=== PATIENT | male | born 1960 | race Caucasian/White ===

== ENCOUNTER 2018-04-24 08:39 | Inpatient (IN) ==
[2018-04-24] MEDS ORDERED: THIAMINE 200 MG/2 ML VIAL IV STA (08:59)
[2018-04-24] MEDS ORDERED: THIAMINE INJ 100 MG, FOLIC ACID INJ 1 MG, MAGNESIUM SULF INJ 2 GM, MULTIVITAMIN INJ 10 ... IV ONE (08:59)
[2018-04-24 09:58] LABS: Basophils % 0.4 % (0.0-0.8); Eosinophils % 0.8 % (0.00-10.9); Hematocrit 35.9 VOL% (42.0-52.0); Immature Granulocytes % 0.4 %; Immature Granulocytes Absolute 0.02 #; Lymphocytes # 1.1 10*3/uL (1.4-4.0); Lymphocytes % 20.5 % (21.2-54.2); Mean Corpuscular HGB Conc 36.2 GM/DL (32-36); Mean Corpuscular Hemoglobin 37 PG (27-34); Monocytes # 0.4 10*3/uL (0.11-0.8); Monocytes % 7.1 % (1.7-12.7); Neutrophils # 3.7 10*3/uL (1.4-7.4); Neutrophils % 70.8 % (38.7-73.9); Red Blood Count 3.52 MC/CUMM (3.8-5.5); White Blood Count 5.2 T/CUMM (4-12)
[2018-04-24 10:04] LABS: Platelet Count 56 T/CUMM (130-400)
[2018-04-24 10:07] LABS: INR 1.5; PT Patient Result 15.8 SECS
[2018-04-24 10:11] LABS: Alanine Aminotransferase 45 U/L (16-61); Albumin 3.3 G/DL (3.4-5.0); Alkaline Phosphatase 194 U/L (45-117); Aspartate Amino Transferase 106 U/L (0-37); Blood Urea Nitrogen 10 MG/DL (7-18); Calcium 8.5 MG/DL (8.5-10.1); Glucose 134 MG/DL (74-106); Osmolality,Calculated 270.1 MOS/KG (273-304); Potassium 2.9 MMOL/L (3.5-5.1); Sodium 135 MMOL/L (136-145); Total Protein 6.5 G/DL (6.4-8.3)
[2018-04-24 10:17] LABS: Ammonia 45 UMOL/L (11-32)
[2018-04-24 10:48] LABS: Apearance,Urine CLEAR (Clear); Blood, Urine Negative (Negative); Glucose,Urine (UA) 50 mg/dL (Negative); Ketones,Urine Negative (Negative); Mucus,Urine Many /LPF (Occasional); Nitrite,Urine Negative (Negative); Protein,Urine 100 MG/DL; Renal Epithelial Cells,Urine Few /HPF (<1); Squamous Epithelial Cell,Urine Occasional /HPF (0-10); Urine Color Amber (Yellow); WBC,Urine 3 /HPF (0-6)
[2018-04-24 10:54] LABS: Bilirubin,Urine Moderate mg/dL (Negative)
[2018-04-24 11:41] LABS: Hypochromasia 1+; Macrocytosis 1+; Platelet Estimate Decreased
[2018-04-24] MEDS ORDERED: ONDANSETRON 4 MG/2 ML VIAL IV PRN (14:06)
[2018-04-24] MEDS ORDERED: ACETAMINOPHEN 325 MG TABLET PO PRN (14:06)
[2018-04-24] MEDS ORDERED: cloNIDine 0.1 MG TABLET PO PRN (14:09)
[2018-04-24] MEDS ORDERED: NICOTINE 14 MG/24 HR PATCH TRANSDERM SCH (14:30)
[2018-04-24] MEDS ORDERED: HALOPERIDOL 5 MG/ML AMP IV PRN (16:11)
[2018-04-24] MEDS: GABAPENTIN 300 MG CAPSULE PO SCH ×2 (18:01→20:51)
[2018-04-24] MEDS: POTASSIUM CHLORIDE 20 MEQ TABLET PO PRN ×3 (18:05→23:13)
[2018-04-24] MEDS ORDERED: rOPINIRole 1 MG TABLET PO SCH (21:00)
[2018-04-25] MEDS: POTASSIUM CHLORIDE 20 MEQ TABLET PO PRN (01:18)
[2018-04-25 06:55] LABS: Basophils % 0.4 % (0.0-0.8); Eosinophils # 0.1 10*3/uL (0.0-0.87); Eosinophils % 1.8 % (0.00-10.9); Hematocrit 34.3 VOL% (42.0-52.0); Immature Granulocytes % 0.6 %; Immature Granulocytes Absolute 0.03 #; Lymphocytes # 1.3 10*3/uL (1.4-4.0); Lymphocytes % 26.6 % (21.2-54.2); Mean Corpuscular Hemoglobin 36 PG (27-34); Mean Corpuscular Volume 103.9 FL (87-102); Mean Platelet Volume 11.3 FL (9.6-12.0); Monocytes # 0.4 10*3/uL (0.11-0.8); Monocytes % 7.4 % (1.7-12.7); Neutrophils # 3.1 10*3/uL (1.4-7.4); Neutrophils % 63.2 % (38.7-73.9); Red Cell Distribution Width 14.2 % (9.3-17.3); White Blood Count 4.9 T/CUMM (4-12)
[2018-04-25 06:56] LABS: Platelet Count 45 T/CUMM (130-400)
[2018-04-25 07:13] LABS: Calcium 8.1 MG/DL (8.5-10.1); Osmolality,Calculated 272.8 MOS/KG (273-304); Potassium 3.1 MMOL/L (3.5-5.1)
[2018-04-25 07:27] LABS: Hypochromasia 1+; Macrocytosis Slight; Platelet Estimate Decreased
[2018-04-25] MEDS ORDERED: LACTULOSE 20 GM/30 ML UDCUP PO PRN (08:17)
[2018-04-25] MEDS ORDERED: DICYCLOMINE 10 MG CAPSULE PO PRN (08:40)
[2018-04-25] MEDS: GABAPENTIN 300 MG CAPSULE PO SCH (08:48)
[2018-04-25] MEDS ORDERED: THIAMINE 100 MG TABLET PO SCH (09:00)
[2018-04-25] MEDS ORDERED: PANTOPRAZOLE 40 MG TABLET PO SCH (09:00)
[2018-04-25] MEDS ORDERED: FOLIC ACID 1 MG TABLET PO SCH (09:00)
[2018-04-25] MEDS ORDERED: MULTIVITAMIN (CENTRUM) TABLET PO SCH (09:00)
[2018-04-25] MEDS ORDERED: chlordiazePOXIDE 25 MG CAPSULE PO SCH (09:00)
[2018-04-25 14:30] VITALS: BP 122/71
== END 2018-04-25 15:20 | disposition home or self-care (01) | DRG 897 ==
LOC: N.ED 08:39 → N.EDINP 14:06 → N.5E 15:38
PROVIDERS: ADMIT Internal Medicine; ATTEND Internal Medicine

== ENCOUNTER 2019-04-17 14:39 | Inpatient (IN) ==
[2019-04-17] MEDS ORDERED: ONDANSETRON 4 MG/2 ML VIAL IV ONE (15:37)
[2019-04-17 15:57] LABS: Basophils % 0.4 % (0.0-0.8); Eosinophils % 0.4 % (0.00-10.9); Hematocrit 45.9 VOL% (42.0-52.0); Hemoglobin 15.3 GM/DL (14.0-18.0); Immature Granulocytes % 0.3 %; Immature Granulocytes Absolute 0.03 #; Lymphocytes # 1.3 10*3/uL (1.4-4.0); Lymphocytes % 14.5 % (21.2-54.2); Mean Corpuscular HGB Conc 33.3 GM/DL (32-36); Mean Corpuscular Volume 94.8 FL (87-102); Mean Platelet Volume 12.4 FL (9.6-12.0); Monocytes % 6.6 % (1.7-12.7); Neutrophils % 77.8 % (38.7-73.9); Platelet Count 117 T/CUMM (130-400); Red Blood Count 4.84 MC/CUMM (3.8-5.5); Red Cell Distribution Width 12.1 % (9.3-17.3); White Blood Count 9.2 T/CUMM (4-12)
[2019-04-17 16:01] LABS: Apearance,Urine CLEAR (Clear); Bilirubin,Urine Negative (Negative); Blood, Urine Negative (Negative); Glucose,Urine (UA) >=500 mg/dL (Negative); Ketones,Urine 5 mg/dL (Negative); Nitrite,Urine Negative (Negative); Protein,Urine Negative; RBC,Urine 1 /HPF (0-4); Urine Color Colorless (Yellow); Urine Specific Gravity 1.025 (1.001-1.035); Urine Urobilinogen < 2.0 EU/DL (0.2-1.0); WBC,Urine <1 /HPF (0-6)
[2019-04-17 16:21] LABS: Albumin 4.2 G/DL (3.4-5.0); Bilirubin,Total 1.1 MG/DL (0.2-1.0); Calcium 10.2 MG/DL (8.5-10.1); Osmolality,Calculated 324.2 MOS/KG (273-304); Total Protein 7.8 G/DL (6.4-8.3)
[2019-04-17] MEDS ORDERED: SODIUM CHLORIDE 0.9% 2,000 ML IV STA (16:31)
[2019-04-17] MEDS ORDERED: MAGNESIUM SULF RIDER 2 GM in PREMIX 1 EACH IV PRN (16:50)
[2019-04-17] MEDS ORDERED: SODIUM CHLORIDE 0.9% 1,000 ML IV ONE (16:50)
[2019-04-17] MEDS ORDERED: INSULIN REGULAR 100 UNIT/ML IV ONE (16:50)
[2019-04-17] MEDS ORDERED: GLUCAGON 1 MG VIAL IM PRN (16:50)
[2019-04-17] MEDS ORDERED: DEXTROSE 10% 250 ML BAG IV PRN ×2 (16:50)
[2019-04-17] MEDS ORDERED: SODIUM PHOSPHATE INJ 19.3 MMOL in SODIUM CHLORIDE 0.9% 250 ML IV PRN (16:50)
[2019-04-17] MEDS ORDERED: SODIUM BICARB INJ 100 MEQ in STERILE WATER INJ 400 ML IV PRN (16:50)
[2019-04-17] MEDS ORDERED: MAGNESIUM SULF RIDER 4 GM in PREMIX 1 EACH IV PRN (16:50)
[2019-04-17] MEDS ORDERED: INSULIN REGULAR DRIP 100 ML IV SCH (17:00)
[2019-04-17] MEDS ORDERED: ONDANSETRON 4 MG/2 ML VIAL IV STA (17:05)
[2019-04-17] MEDS ORDERED: ONDANSETRON 4 MG/2 ML VIAL IV PRN (17:25)
[2019-04-17 17:34] LABS: INR 1.1; PT Patient Result 11.5 SECS; Partial Thromboplastin Time 25.1 SECS (0-40)
[2019-04-17 17:53] LABS: ABG Base Excess 3.6 MMOL/L (-2.5-2.5); ABG HCO3 27.4 MMOL/L (20-26); ABG Oxygen Saturation 90.7 % (95-100); ABG PCO2 49.1 MM HG (35-48); ABG PH 7.389 (7.35-7.45); ABG PO2 60.2 MM HG (80-95); ABG TCO2 25.4 MMOL/L (23-27); Allen Test Positive; Pt O2 Delivery Device Room Air
[2019-04-17 18:35] LABS: Apearance,Urine CLEAR (Clear); Bilirubin,Urine Negative (Negative); Blood, Urine Negative (Negative); Glucose,Urine (UA) >=500 mg/dL (Negative); Ketones,Urine 5 mg/dL (Negative); Mucus,Urine Occasional /LPF (Occasional); Nitrite,Urine Negative (Negative); Protein,Urine Negative; RBC,Urine 3 /HPF (0-4); Urine Color Colorless (Yellow); Urine Specific Gravity 1.032 (1.001-1.035); Urine Urobilinogen < 2.0 EU/DL (0.2-1.0); WBC,Urine <1 /HPF (0-6)
[2019-04-17] MEDS: SODIUM CHLORIDE 0.9% 1,000 ML IV SCH ×3 (18:35→22:37)
[2019-04-17 19:17] LABS: Calcium 9.3 MG/DL (8.5-10.1)
[2019-04-17] MEDS: FAMOTIDINE 20 MG/2 ML VIAL IV SCH (19:26)
[2019-04-17 19:46] LABS: Barbiturates Screen,Urine Negative (Negative); Benzodiazepines Screen,Urine Negative (Negative); Cannabinoid Screen,Urine Negative (Negative); Opiate Screen,Urine Negative (Negative); Phencyclidine Screen,Urine Negative (Negative)
[2019-04-17] MEDS: GABAPENTIN 300 MG CAPSULE PO SCH ×2 (20:11→20:17)
[2019-04-17] MEDS ORDERED: ENOXAPARIN 30 MG/0.3 ML SYRINGE SUBCUT SCH (21:00)
[2019-04-17 21:34] LABS: Calcium 8.8 MG/DL (8.5-10.1); Osmolality,Calculated 304.3 MOS/KG (273-304)
[2019-04-17] MEDS: POTASSIUM CHLORIDE RIDER 10 MEQ in PREMIX 1 EACH IV PRN ×3 (21:43→23:44)
[2019-04-17] MEDS ORDERED: SODIUM CHLORIDE 0.9% 1,000 ML IV SCH (21:50)
[2019-04-18 02:07] LABS: Calcium 8.2 MG/DL (8.5-10.1); Osmolality,Calculated 303.7 MOS/KG (273-304)
[2019-04-18] MEDS ORDERED: INSULIN REGULAR 100 UNIT/ML IV ONE ×2 (03:27→05:34)
[2019-04-18] MEDS: FAMOTIDINE 20 MG/2 ML VIAL IV SCH (05:03)
[2019-04-18 05:06] LABS: Basophils # 0.1 10*3/uL (0.0-0.2); Basophils % 0.5 % (0.0-0.8); Eosinophils # 0.2 10*3/uL (0.0-0.87); Eosinophils % 2.3 % (0.00-10.9); Hematocrit 35.7 VOL% (42.0-52.0); Hemoglobin 12.3 GM/DL (14.0-18.0); Immature Granulocytes % 0.5 %; Immature Granulocytes Absolute 0.05 #; Lymphocytes # 2.9 10*3/uL (1.4-4.0); Lymphocytes % 26.9 % (21.2-54.2); Mean Corpuscular HGB Conc 34.5 GM/DL (32-36); Mean Corpuscular Volume 92.2 FL (87-102); Mean Platelet Volume 11.4 FL (9.6-12.0); Monocytes % 7.4 % (1.7-12.7); Neutrophils % 62.4 % (38.7-73.9); Platelet Count 97 T/CUMM (130-400); Red Blood Count 3.87 MC/CUMM (3.8-5.5); Red Cell Distribution Width 11.7 % (9.3-17.3); White Blood Count 10.6 T/CUMM (4-12)
[2019-04-18 05:27] LABS: Calcium 8.2 MG/DL (8.5-10.1); Osmolality,Calculated 302.6 MOS/KG (273-304)
[2019-04-18] MEDS: POTASSIUM CHLORIDE RIDER 10 MEQ in PREMIX 1 EACH IV PRN ×2 (05:37→06:42)
[2019-04-18 05:38] LABS: Platelet Estimate Decreased
[2019-04-18] MEDS ORDERED: SODIUM CHLOR 0.45% KCL 20 MEQ 20 MEQ/1,000 ML BAG IV SCH (06:00)
[2019-04-18] MEDS: rOPINIRole 1 MG TABLET PO SCH (08:41)
[2019-04-18] MEDS: GABAPENTIN 300 MG CAPSULE PO SCH ×3 (08:41→21:19)
[2019-04-18] MEDS: PANTOPRAZOLE 40 MG TABLET PO SCH (08:41)
[2019-04-18] MEDS: SODIUM CHLORIDE 0.45% 1,000 ML IV SCH ×2 (08:44→17:25)
[2019-04-18] MEDS ORDERED: INSULIN GLARGINE 100 UNIT/ML SUBCUT SCH ×2 (09:00→12:27)
[2019-04-18] MEDS ORDERED: SODIUM CHLORIDE 0.45% 1,000 ML IV SCH (09:50)
[2019-04-18 09:51] LABS: Calcium 8.1 MG/DL (8.5-10.1)
[2019-04-18] MEDS ORDERED: LORazepam 1 MG TABLET PO PRN (11:06)
[2019-04-18] MEDS: THIAMINE 100 MG TABLET PO SCH (11:29)
[2019-04-18] MEDS: INSULIN LISPRO 100 UNIT/ML SUBCUT SCH ×5 (11:29→21:22)
[2019-04-18] MEDS: MULTIVITAMIN (CENTRUM) TABLET PO SCH (11:29)
[2019-04-18] MEDS: FOLIC ACID 1 MG TABLET PO SCH (11:29)
[2019-04-18] MEDS ORDERED: ENOXAPARIN 40 MG/0.4 ML SYRINGE SUBCUT SCH (21:00)
[2019-04-19 04:56] LABS: Basophils # 0.1 10*3/uL (0.0-0.2); Basophils % 0.6 % (0.0-0.8); Eosinophils # 0.3 10*3/uL (0.0-0.87); Eosinophils % 3.3 % (0.00-10.9); Hemoglobin 12.6 GM/DL (14.0-18.0); Immature Granulocytes % 0.5 %; Immature Granulocytes Absolute 0.05 #; Lymphocytes # 2.9 10*3/uL (1.4-4.0); Lymphocytes % 30.3 % (21.2-54.2); Mean Corpuscular Volume 91.6 FL (87-102); Mean Platelet Volume 11.8 FL (9.6-12.0); Monocytes % 5.3 % (1.7-12.7); Platelet Count 92 T/CUMM (130-400); Red Blood Count 3.93 MC/CUMM (3.8-5.5); Red Cell Distribution Width 11.6 % (9.3-17.3); White Blood Count 9.6 T/CUMM (4-12)
[2019-04-19 05:17] LABS: Eosinophils 3 % (0-10); Lymphocytes 32 % (20-55); Segmented Neutrophils 59 % (50-85); Total Cells Counted 100
[2019-04-19 05:18] LABS: Hypochromasia 1+; Platelet Estimate Decreased
[2019-04-19 05:19] LABS: Calcium 8.2 MG/DL (8.5-10.1); Osmolality,Calculated 288.4 MOS/KG (273-304)
[2019-04-19] MEDS: SODIUM CHLORIDE 0.45% 1,000 ML IV SCH (05:48)
[2019-04-19 08:41] LABS: Albumin 2.6 G/DL (3.4-5.0); Bilirubin,Direct 0.2 MG/DL (0.0-0.20); Bilirubin,Indirect 0.2 MG/DL (0.0-1.0); Bilirubin,Total 0.4 MG/DL (0.2-1.0)
[2019-04-19] MEDS: MULTIVITAMIN (CENTRUM) TABLET PO SCH (09:18)
[2019-04-19] MEDS: FOLIC ACID 1 MG TABLET PO SCH (09:18)
[2019-04-19] MEDS: GABAPENTIN 300 MG CAPSULE PO SCH ×2 (09:18→15:24)
[2019-04-19] MEDS: THIAMINE 100 MG TABLET PO SCH (09:19)
[2019-04-19] MEDS: PANTOPRAZOLE 40 MG TABLET PO SCH (09:19)
[2019-04-19] MEDS: rOPINIRole 1 MG TABLET PO SCH (09:19)
[2019-04-19] MEDS: INSULIN LISPRO 100 UNIT/ML SUBCUT SCH ×4 (09:34→12:39)
[2019-04-19 12:21] VITALS: BP 118/74
== END 2019-04-19 16:25 | disposition home or self-care (01) | DRG 638 ==
LOC: N.ED 14:39 → SUATTDRO 16:50 → N.EDINP 16:50 → N.CC 17:26 → N.3E 04-18 14:36
PROVIDERS: ADMIT Internal Medicine; ATTEND Internal Medicine

== ENCOUNTER 2022-02-07 14:14 | Inpatient (IN) ==
[2022-02-07] MEDS ORDERED: SODIUM CHLORIDE 0.9% 1,000 ML IV STA (14:56)
[2022-02-07] MEDS ORDERED: ONDANSETRON 4 MG/2 ML VIAL IV STA (14:56)
[2022-02-07 15:30] LABS: Albumin 3.3 G/DL (3.4-5.0); Bilirubin,Total 1.9 MG/DL (0.20-1.00); Calcium 9.1 MG/DL (8.5-10.1); Potassium 3.7 MMOL/L (3.5-5.1); Total Protein 6.9 G/DL (6.4-8.2)
[2022-02-07 15:34] LABS: Basophils % 0.3 % (0.0-0.8); Eosinophils # 0.1 10*3/uL (0.0-0.87); Eosinophils % 0.6 % (0.00-10.9); Hemoglobin 13.7 GM/DL (14.0-18.0); Immature Granulocytes % 0.5 %; Immature Granulocytes Absolute 0.04 #; Lymphocytes # 1.5 10*3/uL (1.4-4.0); Lymphocytes % 16.5 % (21.2-54.2); Mean Corpuscular HGB Conc 34.3 GM/DL (32-36); Mean Corpuscular Volume 87.7 FL (87-102); Mean Platelet Volume 10.8 FL (9.6-12.0); Monocytes # 0.7 10*3/uL (0.11-0.8); Monocytes % 7.3 % (1.7-12.7); Neutrophils % 74.8 % (38.7-73.9); Platelet Count 108 T/CUMM (130-400); Red Blood Count 4.56 MC/CUMM (3.8-5.5); Red Cell Distribution Width 12.7 % (9.3-17.3); White Blood Count 8.9 T/CUMM (4-12)
[2022-02-07 15:42] LABS: Glucose,Urine (UA) Negative (Negative); Protein,Urine Negative (Negative); Urine Appearance Clear (Clear); Urine Color Yellow (Yellow); Urine Specific Gravity 1.015 (1.001-1.035)
[2022-02-07 15:43] LABS: Bilirubin,Urine Negative (Negative); Blood, Urine Negative (Negative); Ketones,Urine 15 mg/dL (Negative); Nitrite,Urine Negative (Negative); Urine Urobilinogen >= 8.0 eU/dL (<2.0)
[2022-02-07 15:45] LABS: RBC,Urine <1 /HPF (0-4); Squamous Epithelial Cell,Urine Occasional /HPF (0-10)
[2022-02-07] MEDS: DEXTROSE 5% NACL 0.45% 1,000 ML IV SCH (19:25)
[2022-02-07] MEDS: MORPHINE 2 MG/1 ML SYRINGE IV PRN ×2 (19:42→23:33)
[2022-02-07] MEDS: ONDANSETRON 4 MG/2 ML VIAL IV PRN (19:43)
[2022-02-08] MEDS: ONDANSETRON 4 MG/2 ML VIAL IV PRN (00:20)
[2022-02-08] MEDS ORDERED: PROMETHAZINE 25 MG/1 ML VIAL IM PRN (01:00)
[2022-02-08] MEDS ORDERED: HYDROmorphone 1 MG/1 ML SYRINGE IV ONE (01:48)
[2022-02-08] MEDS: HYDROmorphone 1 MG/1 ML SYRINGE IV PRN ×6 (04:04→21:59)
[2022-02-08] MEDS: DEXTROSE 5% NACL 0.45% 1,000 ML IV SCH ×2 (04:05→06:24)
[2022-02-08 04:52] LABS: Basophils % 0.2 % (0.0-0.8); Hematocrit 36.1 VOL% (42.0-52.0); Hemoglobin 12.3 GM/DL (14.0-18.0); Immature Granulocytes % 0.4 %; Immature Granulocytes Absolute 0.05 #; Lymphocytes # 0.4 10*3/uL (1.4-4.0); Lymphocytes % 3.2 % (21.2-54.2); Mean Corpuscular HGB Conc 34.1 GM/DL (32-36); Mean Corpuscular Volume 87.4 FL (87-102); Mean Platelet Volume 10.5 FL (9.6-12.0); Monocytes # 1.1 10*3/uL (0.11-0.8); Monocytes % 8.3 % (1.7-12.7); Neutrophils % 87.9 % (38.7-73.9); Platelet Count 98 T/CUMM (130-400); Red Blood Count 4.13 MC/CUMM (3.8-5.5); Red Cell Distribution Width 12.6 % (9.3-17.3); White Blood Count 13.3 T/CUMM (4-12)
[2022-02-08 05:13] LABS: Band Neutrophils 12 % (0-10); Lymphocytes 6 % (20-55); Microcytosis 1+; Total Cells Counted 100
[2022-02-08 05:14] LABS: Ovalocytes Slight; Platelet Estimate Decreased
[2022-02-08 05:18] LABS: Albumin 3.1 G/DL (3.4-5.0); Bilirubin,Total 2.1 MG/DL (0.20-1.00); Calcium 8.4 MG/DL (8.5-10.1); Osmolality,Calculated 273.2 MOS/KG (273-304); Potassium 3.4 MMOL/L (3.5-5.1); Total Protein 6.1 G/DL (6.4-8.2)
[2022-02-08] MEDS: PANTOPRAZOLE 40 MG VIAL IV SCH (06:16)
[2022-02-08] MEDS ORDERED: DEXTROSE 10% 250 ML BAG IV PRN (09:29)
[2022-02-08] MEDS ORDERED: GLUCAGON 1 MG VIAL IM PRN (09:29)
[2022-02-08] MEDS ORDERED: MAGNESIUM SULF RIDER 2 GM/50 ML PREMIX IV ONE (10:00)
[2022-02-08] MEDS: SODIUM CHLOR 0.9% KCL 20 MEQ 20 MEQ/1,000 ML BAG IV SCH ×2 (10:22→17:15)
[2022-02-08] MEDS: INSULIN LISPRO 100 UNIT/ML SUBCUT SCH ×3 (13:34→21:00)
[2022-02-08 14:07] LABS: INR 1.2; PT Patient Result 12.6 SECS (10.5-12.0)
[2022-02-09] MEDS: HYDROmorphone 1 MG/1 ML SYRINGE IV PRN ×7 (02:24→23:33)
[2022-02-09] MEDS: PANTOPRAZOLE 40 MG VIAL IV SCH (05:43)
[2022-02-09] MEDS: SODIUM CHLOR 0.9% KCL 20 MEQ 20 MEQ/1,000 ML BAG IV SCH ×3 (05:44→22:36)
[2022-02-09] MEDS: INSULIN LISPRO 100 UNIT/ML SUBCUT SCH ×4 (09:11→22:39)
[2022-02-10] MEDS: HYDROmorphone 1 MG/1 ML SYRINGE IV PRN ×9 (02:08→23:03)
[2022-02-10] MEDS: SODIUM CHLOR 0.9% KCL 20 MEQ 20 MEQ/1,000 ML BAG IV SCH ×3 (07:11→18:35)
[2022-02-10] MEDS: PANTOPRAZOLE 40 MG VIAL IV SCH (07:14)
[2022-02-10] MEDS: INSULIN LISPRO 100 UNIT/ML SUBCUT SCH ×4 (11:52→20:42)
[2022-02-11] MEDS: HYDROmorphone 1 MG/1 ML SYRINGE IV PRN ×9 (01:45→22:54)
[2022-02-11] MEDS: SODIUM CHLOR 0.9% KCL 20 MEQ 20 MEQ/1,000 ML BAG IV SCH ×4 (03:41→20:44)
[2022-02-11] MEDS: PANTOPRAZOLE 40 MG VIAL IV SCH ×2 (05:45→10:46)
[2022-02-11] MEDS: INSULIN LISPRO 100 UNIT/ML SUBCUT SCH ×4 (11:14→20:49)
[2022-02-12] MEDS: HYDROmorphone 1 MG/1 ML SYRINGE IV PRN ×9 (00:56→23:59)
[2022-02-12] MEDS: SODIUM CHLOR 0.9% KCL 20 MEQ 20 MEQ/1,000 ML BAG IV SCH ×3 (05:38→21:08)
[2022-02-12] MEDS: PANTOPRAZOLE 40 MG VIAL IV SCH (07:28)
[2022-02-12] MEDS: INSULIN LISPRO 100 UNIT/ML SUBCUT SCH ×4 (07:48→21:12)
[2022-02-12 08:16] LABS: Basophils % 0.3 % (0.0-0.8); Eosinophils # 0.1 10*3/uL (0.0-0.87); Eosinophils % 0.6 % (0.00-10.9); Hematocrit 35.8 VOL% (42.0-52.0); Hemoglobin 12.4 GM/DL (14.0-18.0); Immature Granulocytes % 0.5 %; Immature Granulocytes Absolute 0.04 #; Lymphocytes # 0.8 10*3/uL (1.4-4.0); Lymphocytes % 8.8 % (21.2-54.2); Mean Corpuscular HGB Conc 34.6 GM/DL (32-36); Mean Corpuscular Volume 86.9 FL (87-102); Mean Platelet Volume 9.4 FL (9.6-12.0); Monocytes # 0.8 10*3/uL (0.11-0.8); Monocytes % 9.2 % (1.7-12.7); Neutrophils % 80.6 % (38.7-73.9); Platelet Count 145 T/CUMM (130-400); Red Blood Count 4.12 MC/CUMM (3.8-5.5); Red Cell Distribution Width 12.9 % (9.3-17.3); White Blood Count 8.7 T/CUMM (4-12)
[2022-02-12 08:23] LABS: INR 1.2; PT Patient Result 13.5 SECS (10.5-12.0)
[2022-02-12 08:42] LABS: Albumin 2.3 G/DL (3.4-5.0); Bilirubin,Total 1.3 MG/DL (0.20-1.00); Calcium 9.1 MG/DL (8.5-10.1); Osmolality,Calculated 272.8 MOS/KG (273-304); Potassium 4.1 MMOL/L (3.5-5.1); Total Protein 6.3 G/DL (6.4-8.2)
[2022-02-12] MEDS ORDERED: DIAZEPAM 5 MG TABLET PO ONE (09:40)
[2022-02-12] MEDS ORDERED: MIDAZOLAM 2 MG/2 ML VIAL IV ONE (09:40)
[2022-02-12] MEDS ORDERED: fentaNYL 100 MCG/2 ML VIAL IV ONE (09:40)
[2022-02-13] MEDS: HYDROmorphone 1 MG/1 ML SYRINGE IV PRN ×5 (02:17→16:09)
[2022-02-13] MEDS: SODIUM CHLOR 0.9% KCL 20 MEQ 20 MEQ/1,000 ML BAG IV SCH ×2 (04:50→16:08)
[2022-02-13] MEDS: PANTOPRAZOLE 40 MG VIAL IV SCH (05:36)
[2022-02-13] MEDS: INSULIN LISPRO 100 UNIT/ML SUBCUT SCH ×3 (07:40→16:14)
[2022-02-13] MEDS ORDERED: oxyCODONE/ACETAMINOPHEN 5-325 MG TABLET PO PRN (09:09)
[2022-02-13 17:00] VITALS: BP 149/87
== END 2022-02-13 19:18 | disposition home health service (06) | DRG 446 ==
LOC: EDBD → EDUNIT# → N.ED 14:14 → N.EDINP 14:14 → N.3E 18:52
PROVIDERS: ADMIT Student in an Organized Health Care Education/Training Program; ATTEND Student in an Organized Health Care Education/Training Program

== ENCOUNTER 2022-02-18 14:09 | Inpatient (IN) ==
[2022-02-18] MEDS ORDERED: methylPREDNISolone SOD SUC 125 MG/2 ML VIAL IV STA (21:03)
[2022-02-18] MEDS ORDERED: SODIUM CHLORIDE 0.9% 500 ML IV STA (21:03)
[2022-02-18] MEDS ORDERED: ONDANSETRON 4 MG/2 ML VIAL IV STA (21:03)
[2022-02-18] MEDS ORDERED: ALBUTEROL/IPRATROPIUM 3 ML NEB RESP TX STA (21:03)
[2022-02-18] MEDS ORDERED: HYDROmorphone 1 MG/1 ML SYRINGE IV STA (21:03)
[2022-02-18 21:47] LABS: Basophils # 0.1 10*3/uL (0.0-0.2); Basophils % 0.5 % (0.0-0.8); Eosinophils # 0.1 10*3/uL (0.0-0.87); Eosinophils % 0.5 % (0.00-10.9); Hemoglobin 14.7 GM/DL (14.0-18.0); Immature Granulocytes % 2.1 %; Immature Granulocytes Absolute 0.27 #; Lymphocytes # 2.2 10*3/uL (1.4-4.0); Lymphocytes % 16.7 % (21.2-54.2); Mean Corpuscular HGB Conc 33.4 GM/DL (32-36); Mean Corpuscular Volume 87.5 FL (87-102); Monocytes # 0.8 10*3/uL (0.11-0.8); Monocytes % 6.3 % (1.7-12.7); Neutrophils % 73.9 % (38.7-73.9); Platelet Count 317 T/CUMM (130-400); Red Blood Count 5.03 MC/CUMM (3.8-5.5); Red Cell Distribution Width 12.7 % (9.3-17.3); White Blood Count 12.9 T/CUMM (4-12)
[2022-02-18 21:57] LABS: INR 1.3
[2022-02-18 22:04] LABS: Ammonia < 10 UMOL/L (11-32)
[2022-02-18 22:08] LABS: Lactic Acid 1.4 MMOL/L (0.4-2.0)
[2022-02-18 22:23] LABS: Alanine Aminotransferase 23 U/L (16-61); Alkaline Phosphatase 197 U/L (45-117); Amylase 29 U/L (25-115); Aspartate Amino Transferase 14 U/L (0-37); Blood Urea Nitrogen 26 MG/DL (7-18); Calcium 10.2 MG/DL (8.5-10.1); Carbon Dioxide 30 MMOL/L (21-32); Chloride 93 MMOL/L (98-107); Glucose 142 MG/DL (74-106); Osmolality,Calculated 270.5 MOS/KG (273-304); Potassium 4.3 MMOL/L (3.5-5.1); Sodium 132 MMOL/L (136-145); Total Protein 8.2 G/DL (6.4-8.2)
[2022-02-18] MEDS ORDERED: NICOTINE 21 MG/24 HR PATCH TRANSDERM PRN (22:51)
[2022-02-18] MEDS ORDERED: DEXTROSE 10% 250 ML BAG IV PRN (22:51)
[2022-02-18] MEDS ORDERED: guaiFENesin/DM ER 600-30 MG TABLET PO PRN (22:51)
[2022-02-18] MEDS ORDERED: hydrALAZINE 20 MG/1 ML VIAL IV PRN (22:51)
[2022-02-18] MEDS ORDERED: MORPHINE 2 MG/1 ML SYRINGE IV PRN (22:51)
[2022-02-18] MEDS ORDERED: GLUCAGON 1 MG VIAL IM PRN (22:51)
[2022-02-18] MEDS: PIPERACILLIN/TAZOBACTAM 3,375 MG in SODIUM CHLORIDE 0.9% 100 ML IV SCH (23:20)
[2022-02-19] MEDS: ALBUTEROL/IPRATROPIUM 3 ML NEB RESP TX SCH ×4 (01:25→19:46)
[2022-02-19] MEDS: VANCOMYCIN INJ 1,250 MG in SODIUM CHLORIDE 0.9% 250 ML IV SCH ×2 (03:20→14:57)
[2022-02-19] MEDS: HYDROmorphone 1 MG/1 ML SYRINGE IV PRN ×5 (03:41→21:28)
[2022-02-19 03:45] LABS: Basophils % 0.4 % (0.0-0.8); Eosinophils % 0.1 % (0.00-10.9); Hematocrit 39.9 VOL% (42.0-52.0); Hemoglobin 13.5 GM/DL (14.0-18.0); Immature Granulocytes % 2.4 %; Immature Granulocytes Absolute 0.27 #; Lymphocytes # 0.8 10*3/uL (1.4-4.0); Lymphocytes % 6.8 % (21.2-54.2); Mean Corpuscular HGB Conc 33.8 GM/DL (32-36); Mean Corpuscular Volume 86.9 FL (87-102); Mean Platelet Volume 9.1 FL (9.6-12.0); Monocytes # 0.1 10*3/uL (0.11-0.8); Monocytes % 0.7 % (1.7-12.7); Neutrophils % 89.6 % (38.7-73.9); Platelet Count 262 T/CUMM (130-400); Red Blood Count 4.59 MC/CUMM (3.8-5.5); Red Cell Distribution Width 12.6 % (9.3-17.3); White Blood Count 11.2 T/CUMM (4-12)
[2022-02-19 03:57] LABS: Albumin 2.8 G/DL (3.4-5.0); Bilirubin,Total 1.2 MG/DL (0.20-1.00); Calcium 9.3 MG/DL (8.5-10.1); Osmolality,Calculated 271.8 MOS/KG (273-304); Potassium 4.2 MMOL/L (3.5-5.1); Total Protein 7.6 G/DL (6.4-8.2)
[2022-02-19] MEDS: PIPERACILLIN/TAZOBACTAM 3,375 MG in SODIUM CHLORIDE 0.9% 100 ML IV SCH ×2 (07:00→17:46)
[2022-02-19 07:26] LABS: Calcium Oxalate Crystals,Urine Occasional /HPF (Few); Hyaline Casts,Urine 16 /LPF (0-3); Mucus,Urine Occasional /LPF (Occasional); RBC,Urine 1 /HPF (0-4); Squamous Epithelial Cell,Urine Occasional /HPF (0-10)
[2022-02-19 07:29] LABS: Bilirubin,Urine Small mg/dL (Negative); Blood, Urine Negative (Negative); Glucose,Urine (UA) Negative (Negative); Ketones,Urine 40 mg/dL (Negative); Nitrite,Urine Negative (Negative); Protein,Urine Negative (Negative); Urine Appearance Clear (Clear); Urine Color Yellow (Yellow); Urine Specific Gravity > 1.030 (1.001-1.035); Urine Urobilinogen 0.2 eU/dL (<2.0)
[2022-02-19] MEDS: INSULIN LISPRO 100 UNIT/ML SUBCUT SCH ×4 (07:46→21:23)
[2022-02-19 08:16] LABS: Barbiturates Screen,Urine Negative (Negative); Benzodiazepines Screen,Urine Negative (Negative); Cannabinoid Screen,Urine Negative (Negative); Opiate Screen,Urine Positive (Negative); Phencyclidine Screen,Urine Negative (Negative)
[2022-02-19] MEDS: PANTOPRAZOLE 40 MG TABLET PO SCH (08:50)
[2022-02-19] MEDS: HEPARIN 5,000 UNIT/1 ML VIAL SUBCUT SCH ×2 (08:51→21:21)
[2022-02-20] MEDS: PIPERACILLIN/TAZOBACTAM 3,375 MG in SODIUM CHLORIDE 0.9% 100 ML IV SCH ×4 (00:40→23:48)
[2022-02-20] MEDS: ALBUTEROL/IPRATROPIUM 3 ML NEB RESP TX SCH ×4 (01:13→19:15)
[2022-02-20] MEDS: HYDROmorphone 1 MG/1 ML SYRINGE IV PRN ×5 (01:41→21:11)
[2022-02-20] MEDS: VANCOMYCIN INJ 1,250 MG in SODIUM CHLORIDE 0.9% 250 ML IV SCH ×2 (04:48→14:44)
[2022-02-20 05:38] LABS: Basophils % 0.3 % (0.0-0.8); Eosinophils % 0.1 % (0.00-10.9); Hematocrit 39.1 VOL% (42.0-52.0); Hemoglobin 13.3 GM/DL (14.0-18.0); Immature Granulocytes % 1.1 %; Immature Granulocytes Absolute 0.18 #; Lymphocytes # 2.6 10*3/uL (1.4-4.0); Lymphocytes % 16.7 % (21.2-54.2); Mean Corpuscular Volume 87.9 FL (87-102); Mean Platelet Volume 9.2 FL (9.6-12.0); Monocytes # 0.8 10*3/uL (0.11-0.8); Monocytes % 5.3 % (1.7-12.7); Neutrophils % 76.5 % (38.7-73.9); Platelet Count 293 T/CUMM (130-400); Red Blood Count 4.45 MC/CUMM (3.8-5.5); Red Cell Distribution Width 12.7 % (9.3-17.3); White Blood Count 15.7 T/CUMM (4-12)
[2022-02-20 06:17] LABS: Albumin 2.9 G/DL (3.4-5.0); Bilirubin,Total 0.6 MG/DL (0.20-1.00); Calcium 9.6 MG/DL (8.5-10.1); Osmolality,Calculated 276.2 MOS/KG (273-304); Potassium 4.8 MMOL/L (3.5-5.1); Total Protein 7.4 G/DL (6.4-8.2)
[2022-02-20] MEDS: PANTOPRAZOLE 40 MG TABLET PO SCH (09:21)
[2022-02-20] MEDS: HEPARIN 5,000 UNIT/1 ML VIAL SUBCUT SCH ×2 (09:22→21:12)
[2022-02-20] MEDS: INSULIN LISPRO 100 UNIT/ML SUBCUT SCH ×4 (09:24→21:12)
[2022-02-20] MEDS: CHOLECALCIFEROL 5,000 UNIT TABLET PO SCH (21:12)
[2022-02-21] MEDS: ALBUTEROL/IPRATROPIUM 3 ML NEB RESP TX SCH ×4 (00:30→19:20)
[2022-02-21] MEDS: HYDROmorphone 1 MG/1 ML SYRINGE IV PRN ×5 (02:20→20:42)
[2022-02-21] MEDS: VANCOMYCIN INJ 1,250 MG in SODIUM CHLORIDE 0.9% 250 ML IV SCH ×2 (03:54→16:22)
[2022-02-21 04:46] LABS: Basophils % 0.4 % (0.0-0.8); Eosinophils # 0.1 10*3/uL (0.0-0.87); Eosinophils % 0.8 % (0.00-10.9); Hematocrit 35.6 VOL% (42.0-52.0); Hemoglobin 11.5 GM/DL (14.0-18.0); Immature Granulocytes Absolute 0.09 #; Lymphocytes # 2.5 10*3/uL (1.4-4.0); Lymphocytes % 27.8 % (21.2-54.2); Mean Corpuscular HGB Conc 32.3 GM/DL (32-36); Mean Corpuscular Volume 89.4 FL (87-102); Mean Platelet Volume 8.9 FL (9.6-12.0); Monocytes # 0.6 10*3/uL (0.11-0.8); Monocytes % 6.5 % (1.7-12.7); Neutrophils % 63.5 % (38.7-73.9); Platelet Count 250 T/CUMM (130-400); Red Blood Count 3.98 MC/CUMM (3.8-5.5); Red Cell Distribution Width 12.7 % (9.3-17.3); White Blood Count 9.1 T/CUMM (4-12)
[2022-02-21 05:05] LABS: Albumin 2.7 G/DL (3.4-5.0); Bilirubin,Total 0.6 MG/DL (0.20-1.00); Calcium 9.2 MG/DL (8.5-10.1); Osmolality,Calculated 277.1 MOS/KG (273-304); Potassium 4.1 MMOL/L (3.5-5.1); Total Protein 6.4 G/DL (6.4-8.2)
[2022-02-21] MEDS: INSULIN LISPRO 100 UNIT/ML SUBCUT SCH ×4 (08:46→23:19)
[2022-02-21] MEDS: PIPERACILLIN/TAZOBACTAM 3,375 MG in SODIUM CHLORIDE 0.9% 100 ML IV SCH ×2 (10:21→16:23)
[2022-02-21] MEDS: CHOLECALCIFEROL 5,000 UNIT TABLET PO SCH ×2 (10:22→20:41)
[2022-02-21] MEDS: PANTOPRAZOLE 40 MG TABLET PO SCH (10:22)
[2022-02-21] MEDS: HEPARIN 5,000 UNIT/1 ML VIAL SUBCUT SCH ×2 (10:22→20:41)
[2022-02-21] MEDS ORDERED: FUROSEMIDE 40 MG/4 ML VIAL IV ONE (12:00)
[2022-02-22] MEDS: ALBUTEROL/IPRATROPIUM 3 ML NEB RESP TX SCH ×4 (00:22→19:33)
[2022-02-22] MEDS: PIPERACILLIN/TAZOBACTAM 3,375 MG in SODIUM CHLORIDE 0.9% 100 ML IV SCH ×3 (00:39→18:06)
[2022-02-22] MEDS: VANCOMYCIN INJ 1,250 MG in SODIUM CHLORIDE 0.9% 250 ML IV SCH (04:12)
[2022-02-22] MEDS: HYDROmorphone 1 MG/1 ML SYRINGE IV PRN ×3 (05:43→19:50)
[2022-02-22] MEDS: INSULIN LISPRO 100 UNIT/ML SUBCUT SCH ×4 (09:03→21:05)
[2022-02-22] MEDS: CHOLECALCIFEROL 5,000 UNIT TABLET PO SCH ×2 (09:03→21:05)
[2022-02-22] MEDS: PANTOPRAZOLE 40 MG TABLET PO SCH (09:03)
[2022-02-22] MEDS: HEPARIN 5,000 UNIT/1 ML VIAL SUBCUT SCH ×2 (09:03→21:06)
[2022-02-22] MEDS: LACTULOSE 20 GM/30 ML UDCUP PO PRN (21:05)
[2022-02-23] MEDS: PIPERACILLIN/TAZOBACTAM 3,375 MG in SODIUM CHLORIDE 0.9% 100 ML IV SCH ×4 (00:15→23:58)
[2022-02-23] MEDS: HYDROmorphone 1 MG/1 ML SYRINGE IV PRN ×5 (00:16→20:33)
[2022-02-23] MEDS: ALBUTEROL/IPRATROPIUM 3 ML NEB RESP TX SCH ×4 (00:21→22:16)
[2022-02-23 06:30] LABS: Basophils # 0.1 10*3/uL (0.0-0.2); Basophils % 0.8 % (0.0-0.8); Eosinophils # 0.2 10*3/uL (0.0-0.87); Eosinophils % 2.3 % (0.00-10.9); Hematocrit 34.9 VOL% (42.0-52.0); Hemoglobin 11.4 GM/DL (14.0-18.0); Immature Granulocytes % 1.3 %; Lymphocytes # 2.1 10*3/uL (1.4-4.0); Lymphocytes % 26.7 % (21.2-54.2); Mean Corpuscular HGB Conc 32.7 GM/DL (32-36); Mean Corpuscular Volume 89.5 FL (87-102); Mean Platelet Volume 9.5 FL (9.6-12.0); Monocytes # 0.5 10*3/uL (0.11-0.8); Monocytes % 5.7 % (1.7-12.7); Neutrophils % 63.2 % (38.7-73.9); Platelet Count 275 T/CUMM (130-400); Red Cell Distribution Width 12.7 % (9.3-17.3); White Blood Count 7.8 T/CUMM (4-12)
[2022-02-23 06:44] LABS: Calcium 9.2 MG/DL (8.5-10.1); Osmolality,Calculated 282.5 MOS/KG (273-304); Potassium 3.7 MMOL/L (3.5-5.1)
[2022-02-23] MEDS: HEPARIN 5,000 UNIT/1 ML VIAL SUBCUT SCH ×2 (09:05→20:33)
[2022-02-23] MEDS: CHOLECALCIFEROL 5,000 UNIT TABLET PO SCH ×2 (09:05→20:33)
[2022-02-23] MEDS: PANTOPRAZOLE 40 MG TABLET PO SCH (09:05)
[2022-02-23] MEDS: INSULIN LISPRO 100 UNIT/ML SUBCUT SCH ×4 (10:01→20:40)
[2022-02-23] MEDS: LACTULOSE 20 GM/30 ML UDCUP PO PRN (11:01)
[2022-02-24] MEDS: HYDROmorphone 1 MG/1 ML SYRINGE IV PRN ×6 (00:01→20:54)
[2022-02-24] MEDS: ALBUTEROL/IPRATROPIUM 3 ML NEB RESP TX SCH ×4 (00:24→19:46)
[2022-02-24] MEDS: PANTOPRAZOLE 40 MG TABLET PO SCH (09:03)
[2022-02-24] MEDS: HEPARIN 5,000 UNIT/1 ML VIAL SUBCUT SCH ×2 (09:03→20:57)
[2022-02-24] MEDS: CHOLECALCIFEROL 5,000 UNIT TABLET PO SCH ×2 (09:03→20:56)
[2022-02-24] MEDS: PIPERACILLIN/TAZOBACTAM 3,375 MG in SODIUM CHLORIDE 0.9% 100 ML IV SCH (09:04)
[2022-02-24] MEDS: INSULIN LISPRO 100 UNIT/ML SUBCUT SCH ×5 (09:14→20:55)
[2022-02-24] MEDS: LACTULOSE 20 GM/30 ML UDCUP PO PRN (20:56)
[2022-02-25] MEDS: ALBUTEROL/IPRATROPIUM 3 ML NEB RESP TX SCH ×2 (00:19→07:17)
[2022-02-25] MEDS: HYDROmorphone 1 MG/1 ML SYRINGE IV PRN ×4 (00:33→09:16)
[2022-02-25] MEDS: INSULIN LISPRO 100 UNIT/ML SUBCUT SCH ×2 (08:14→11:44)
[2022-02-25 08:26] VITALS: BP 122/78
[2022-02-25] MEDS: CHOLECALCIFEROL 5,000 UNIT TABLET PO SCH (09:11)
[2022-02-25] MEDS: PANTOPRAZOLE 40 MG TABLET PO SCH (09:11)
[2022-02-25] MEDS: HEPARIN 5,000 UNIT/1 ML VIAL SUBCUT SCH (09:12)
== END 2022-02-25 11:44 | disposition home or self-care (01) | DRG 194 ==
LOC: N.ED 14:09 → N.EDINP 22:51 → SUATTDRO 22:51 → N.5E 02-19 15:31
PROVIDERS: ADMIT Internal Medicine; ATTEND Internal Medicine